=== PATIENT | female | born 1980 | race African-American/Black ===

== ENCOUNTER 2018-12-10 20:29 | Outpatient (CLI) | payer SELFPAY ==
[2018-12-10 21:04] VITALS: BP 102/61
--- NOTE | 2018-12-10 22:27 | Ultrasound Report ---
Limited OB ultrasound INDICATION: Evaluate placental location. Clinical gestational age of 30 weeks, 7 days. COMPARISON: None available. FINDINGS: A single live intrauterine is noted with a heart rate of 164 bpm. The placenta is located a nteriorly and is free of the os. The cervix measures 4.6 cm in length and is closed. No additional significant abnormality is seen. IMPRESSION: No acute sonographic abnormality of the pelvis is seen on this limited study. Signer Name: Silas Wolfe MD Signed: 12/10/2018 10:22 PM Workstation Name: [id number]
== END 2018-12-10 22:25 | disposition home or self-care (01) ==
LOC: TRG 20:29
PROVIDERS: ATTEND Obstetrics & Gynecology
DX: O46.92 Antepartum hemorrhage, unspecified, second trimester (principal); Z3A.22 22 weeks gestation of pregnancy
CPT/HCPCS: 76815

== ENCOUNTER 2019-04-03 17:05 | Inpatient (IN) | payer OTHER ==
[2019-04-03] MEDS ORDERED: LACTATED RINGERS 1,000 ML ONE (19:23)
[2019-04-03 20:31] LABS: Hematocrit 36.5 % (30.3-42.9); Hemoglobin 12.6 gm/dl (10.1-14.3); Mean Corpuscular HGB Conc 35 % (30-34); Mean Corpuscular Volume 90 fl (79-97); Platelet Count 268 K/mm3 (140-440); Red Blood Count 4.08 M/mm3 (3.65-5.03); Red Cell Distribution Width 13.6 % (13.2-15.2)
[2019-04-03] MEDS ORDERED: ACETAMINOPHEN 325 MG TAB PO PRN (21:25)
[2019-04-03] MEDS ORDERED: DINOPROSTONE 10 MG VAG SUPP VG ONE (21:25)
[2019-04-03] MEDS ORDERED: DOCUSATE SODIUM 100 MG CAP PO PRN (21:25)
[2019-04-03] MEDS ORDERED: AMPICILLIN/NS 2 GM/100 ML 2 GM/100 ML BAG IV ONE (21:25)
[2019-04-03] MEDS ORDERED: ONDANSETRON 4 MG/2 ML INJ IV PRN (21:25)
--- NOTE | 2019-04-03 21:36 | History and Physical Report ---
History of Present Illness Date of examination: 04/03/19 History of present illness: Pt is a 38 yo at 40.3 weeks today who was sent in today for IOL. Also decreased FM the last 2-3 days. No VB. No LOF. No significant issues except hypothyroidism. GBS pos. Pt is not complaining of ctx. Past History Past Medical History: thyroid disease (hypothyroidism) Past Surgical History: other (thyroid cyst removed.) Family/Genetic History: none Social history: no significant social history - Obstetrical History Expected Date of Delivery: 03/31/19 Actual Gestation: 40 Week(s) 3 Day(s) : 1 Para: 1 Hx # Term Pregnancies: 0 Medications and Allergies Allergies Allergy/AdvReac Type Severity Reaction Status Date / Time No Known Allergies Allergy Unverified 12/10/18 21:38 Active Meds: Active Medications Docusate Sodium (Colace) 100 mg PO Q12H PRN PRN Reason: Constipation Multivitamins/Iron/Calcium ( Vitamin) 1 each PO QDAY BRANDEE levothyroxine 75 mcg qd Review of Systems All systems: negative (except HPI) - Vital Signs Vital signs: Vital Signs Pulse BP 96 H 107/73 04/03/19 19:30 04/03/19 19:30 Temp Pulse Resp BP Pulse Ox 91 H 103/59 96 04/03/19 21:28 04/03/19 21:14 04/03/19 21:28 - Physical Exam Abdomen: Positive: normal appearance, soft. Negative: tenderness - Obstetrical FHR: category 1 Cervical Dilatation: 1 Cervical Effacement Percentage: 50 station: -3 Uterine Contraction Pattern: Absent Results Result Diagrams: 04/03/19 19:50 Abnormal lab results 04/03/19 Range/Units 19:50 WBC 12.0 H (4.5-11.0) K/mm3 MCHC 35 H (30-34) % All other labs normal. Assessment and Plan - Patient Problems (1) Post-dates Current Visit: Yes Status: Acute Plan to address problem: PT is a at 40.3 for IOL. Will start with cervidil. NST is reactive. Expectant care.
[2019-04-03] MEDS ORDERED: LACTATED RINGERS 1,000 ML IV SCH (22:00)
[2019-04-03 23:35] LABS: Basophils % (Auto) 0.2 % (0.0-1.8); Eosinophils # (Auto) 0.2 K/mm3 (0.0-0.4); Eosinophils % (Auto) 1.8 % (0.0-4.3); Hematocrit 37.5 % (30.3-42.9); Hemoglobin 12.4 gm/dl (10.1-14.3); Lymphocytes # (Auto) 2.5 K/mm3 (1.2-5.4); Lymphocytes % (Auto) 18.1 % (13.4-35.0); Mean Corpuscular HGB Conc 33 % (30-34); Mean Corpuscular Volume 92 fl (79-97); Monocytes # (Auto) 1.1 K/mm3 (0.0-0.8); Monocytes % (Auto) 8.2 % (0.0-7.3); Platelet Count 264 K/mm3 (140-440); Red Blood Count 4.09 M/mm3 (3.65-5.03); Red Cell Distribution Width 13.6 % (13.2-15.2)
[2019-04-04] MEDS ORDERED: LEVOTHYROXINE 75 MCG TAB PO SCH (06:00)
[2019-04-04] MEDS ORDERED: fentaNYL 100 MCG/2 ML INJ ONE (09:19)
[2019-04-04] MEDS ORDERED: fentaNYL 100 MCG/2 ML INJ IV PRN (09:30)
[2019-04-04] MEDS: AMPICILLIN/NS 1 GM/50 ML 1 GM/50 ML BAG IV SCH ×3 (09:31→18:55)
[2019-04-04] MEDS ORDERED: PRENATAL VIT27-FE FUMARATE-FOLIC ACID VIT TAB PO SCH (10:00)
[2019-04-04] MEDS ORDERED: LIDOCAINE (2%) 20 MG/1 ML VIAL 20 ML MDV INFILTRATI ONE (10:18)
[2019-04-04] MEDS ORDERED: MINERAL OIL 30 ML ORAL LIQD PO PRN (10:18)
[2019-04-04] MEDS ORDERED: OXYTOCIN DRIP 30 UNITS/500 ML BAG IV SCH (11:00)
--- NOTE | 2019-04-04 12:01 | Event Note ---
Date: 04/04/19 O: VE -1, arom clear fluid, CAT I tracing A: Active labor P; EXpect
[2019-04-04] MEDS ORDERED: DEXMEDETOMIDINE 200 MCG/2 ML VIAL IV ONE (12:09)
[2019-04-04] MEDS ORDERED: ePHEDrine SULFATE 50 MG/1 ML INJ ONE (12:39)
[2019-04-04] MEDS ORDERED: NALOXONE 2 MG/2 ML INJ IV PRN (13:01)
[2019-04-04] MEDS ORDERED: ePHEDrine SULFATE 50 MG/1 ML INJ IV PRN (13:01)
--- NOTE | 2019-04-04 13:01 | Anesthesia Consultation ---
Anesthesia Consult and Med Hx Date of service: 04/04/19 - Airway Anesthetic Teeth Evaluation: Good ROM Head & Neck: Adequate Mental/Hyoid Distance: Adequate Mallampati Class: Class II Intubation Access Assessment: Good - Pulmonary Exam CTA: Yes - Cardiac Exam Cardiac Exam: RRR - Pre-Operative Health Status ASA Pre-Surgery Classification: ASA2, Emergency Proposed Anesthetic Plan: Epidural, Spinal - Pulmonary Hx Asthma: No COPD: No Hx Pneumonia: No - Cardiovascular System Hx Hypertension: No - Central Nervous System Hx Seizures: No Hx Psychiatric Problems: No - Endocrine Hx Renal Disease: No Hx End Stage Renal Disease: No Hx Hypothyroidism: Yes (TAKING SYNTHROID) Hx Hyperthyroidism: No - Hematic Hx Anemia: No Hx Sickle Cell Disease: No - Other Systems Hx Alcohol Use: No
[2019-04-04] MEDS ORDERED: fentaNYL-BUPIV 2 MCG/ML-0.125% 200 MCG/100 ML BAG EPIDURAL SCH (14:00)
[2019-04-04] MEDS ORDERED: BUPIVACAINE/PF (0.25%) 2.5 MG/ML 10 ML VIAL INFILTRATI ONE ×3 (15:25→23:22)
[2019-04-04] MEDS ORDERED: PHENYLEPHRINE/NS 1,000 MCG/10 ML SYRINGE (OR USE) IV ONE ×2 (15:37→23:43)
[2019-04-04] MEDS: LACTATED RINGERS 1,000 ML IV SCH ×2 (16:26→20:42)
--- NOTE | 2019-04-04 17:28 | Progress Note ---
Assessment and Plan - Patient Problems (1) 40 weeks gestation of Current Visit: Yes Status: Acute (2) Encounter for induction of labor Current Visit: Yes Status: Acute Plan to address problem: Continue routine labor orders Start oxytocin for labor augmentation Per Dr. Martinez, if no cervical changes 4 hrs after initiating Pitocin will proceed with primary Plan of care discussed with patient and spouse. All questions answered. Anticipate vaginal delivery (3) History of hypothyroidism Current Visit: Yes Status: Acute Plan to address problem: On Levothyroxine 75 mcg qd. Last taken 04/02/19 Subjective - Subjective Date of service: 04/04/19 Principal diagnosis: IUP @ 40w4d, Induction of labor Interval history: see H&P and Event Note Patient reports: movement normal, contractions, other (epidural anesthesia in place) Objective - Vital Signs Vital Signs: Vital Signs - 12hr 04/04/19 04/04/19 04/04/19 05:31 05:36 06:15 Temperature 98.2 F Pulse Rate 83 87 Respiratory 14 Rate Blood Pressure Blood Pressure [Left] O2 Sat by Pulse 97 96 Oximetry 04/04/19 04/04/19 04/04/19 07:24 07:26 12:11 Temperature 98.1 F Pulse Rate 87 87 108 H Respiratory 20 Rate Blood Pressure 110/63 122/71 Blood Pressure 110/63 [Left] O2 Sat by Pulse Oximetry 04/04/19 04/04/19 04/04/19 12:12 12:14 12:17 Temperature Pulse Rate 109 H 113 H 106 H Respiratory Rate Blood Pressure 110/69 Blood Pressure [Left] O2 Sat by Pulse 98 97 Oximetry 04/04/19 04/04/19 04/04/19 12:19 12:22 12:25 Temperature Pulse Rate 104 H 119 H 105 H Respiratory Rate Blood Pressure 111/62 58/32 Blood Pressure [Left] O2 Sat by Pulse 97 Oximetry 04/04/19 04/04/19 04/04/19 12:27 12:28 12:29 Temperature Pulse Rate 130 H 122 H 106 H Respiratory Rate Blood Pressure 61/39 Blood Pressure [Left] O2 Sat by Pulse 97 93 Oximetry 04/04/19 04/04/19 04/04/19 12:32 12:34 12:36 Temperature Pulse Rate 110 H 106 H 114 H Respiratory Rate Blood Pressure 58/33 Blood Pressure [Left] O2 Sat by Pulse 95 92 Oximetry 04/04/19 04/04/19 04/04/19 12:37 12:41 12:42 Temperature Pulse Rate 107 H 107 H 68 Respiratory Rate Blood Pressure 104/57 Blood Pressure [Left] O2 Sat by Pulse 96 98 Oximetry 04/04/19 04/04/19 04/04/19 12:45 12:47 12:49 Temperature Pulse Rate 78 125 H 125 H Respiratory Rate Blood Pressure 97/59 89/53 Blood Pressure [Left] O2 Sat by Pulse 100 Oximetry 04/04/19 04/04/19 04/04/19 12:52 12:55 12:57 Temperature Pulse Rate 129 H 110 H 122 H Respiratory Rate Blood Pressure 106/59 Blood Pressure [Left] O2 Sat by Pulse 99 100 Oximetry 04/04/19 04/04/19 04/04/19 13:00 13:02 13:04 Temperature Pulse Rate 126 H 114 H 113 H Respiratory Rate Blood Pressure 83/47 92/55 Blood Pressure [Left] O2 Sat by Pulse 100 Oximetry 04/04/19 04/04/19 04/04/19 13:07 13:09 13:12 Temperature Pulse Rate 90 106 H 114 H Respiratory Rate Blood Pressure 100/56 Blood Pressure [Left] O2 Sat by Pulse 100 100 Oximetry 04/04/19 04/04/19 04/04/19 13:14 13:17 13:20 Temperature Pulse Rate 103 H 120 H 110 H Respiratory Rate Blood Pressure 97/54 104/58 Blood Pressure [Left] O2 Sat by Pulse 100 Oximetry 04/04/19 04/04/19 04/04/19 13:22 13:25 13:27 Temperature Pulse Rate 117 H 104 H 114 H Respiratory Rate Blood Pressure 102/59 Blood Pressure [Left] O2 Sat by Pulse 100 100 Oximetry 04/04/19 04/04/19 04/04/19 13:30 13:32 13:34 Temperature Pulse Rate 115 H 98 H 114 H Respiratory Rate Blood Pressure 99/50 91/54 Blood Pressure [Left] O2 Sat by Pulse 100 Oximetry 04/04/19 04/04/19 04/04/19 13:37 13:39 13:42 Temperature Pulse Rate 118 H 109 H 118 H Respiratory Rate Blood Pressure 101/56 Blood Pressure [Left] O2 Sat by Pulse 100 100 Oximetry 04/04/19 04/04/19 04/04/19 13:44 13:47 13:50 Temperature Pulse Rate 112 H 115 H 90 Respiratory Rate Blood Pressure 92/55 97/55 Blood Pressure [Left] O2 Sat by Pulse 100 Oximetry 04/04/19 04/04/19 04/04/19 13:52 13:54 13:57 Temperature Pulse Rate 101 H 100 H 114 H Respiratory Rate Blood Pressure 97/54 Blood Pressure [Left] O2 Sat by Pulse 100 100 Oximetry 04/04/19 04/04/19 04/04/19 14:01 14:02 14:05 Temperature Pulse Rate 118 H 103 H 106 H Respiratory Rate Blood Pressure 98/56 103/57 Blood Pressure [Left] O2 Sat by Pulse 100 Oximetry 04/04/19 04/04/19 04/04/19 14:07 14:10 14:12 Temperature Pulse Rate 115 H 104 H 107 H Respiratory Rate Blood Pressure 95/58 Blood Pressure [Left] O2 Sat by Pulse 100 100 Oximetry 04/04/19 04/04/19 04/04/19 14:15 14:17 14:19 Temperature Pulse Rate 118 H 108 H 116 H Respiratory Rate Blood Pressure 96/51 95/54 Blood Pressure [Left] O2 Sat by Pulse 100 Oximetry 04/04/19 04/04/19 04/04/19 14:22 14:24 14:27 Temperature Pulse Rate 112 H 115 H 115 H Respiratory Rate Blood Pressure 95/59 Blood Pressure [Left] O2 Sat by Pulse 99 100 Oximetry 04/04/19 04/04/19 04/04/19 14:30 14:32 14:35 Temperature 97.7 F Pulse Rate 129 H 115 H 113 H Respiratory 26 H Rate Blood Pressure 105/69 109/70 Blood Pressure 109/70 [Left] O2 Sat by Pulse 100 100 Oximetry 04/04/19 04/04/19 04/04/19 14:37 14:41 14:42 Temperature Pulse Rate 113 H 114 H 118 H Respiratory Rate Blood Pressure 102/64 Blood Pressure [Left] O2 Sat by Pulse 100 100 Oximetry 04/04/19 04/04/19 04/04/19 14:45 14:47 14:50 Temperature Pulse Rate 98 H 118 H 97 H Respiratory Rate Blood Pressure 104/61 108/59 Blood Pressure [Left] O2 Sat by Pulse 100 Oximetry 04/04/19 04/04/19 04/04/19 14:52 14:54 14:57 Temperature Pulse Rate 109 H 103 H 120 H Respiratory Rate Blood Pressure 109/60 Blood Pressure [Left] O2 Sat by Pulse 100 100 Oximetry 04/04/19 04/04/19 04/04/19 14:59 15:02 15:05 Temperature Pulse Rate 104 H 103 H 96 H Respiratory Rate Blood Pressure 126/55 86/51 Blood Pressure [Left] O2 Sat by Pulse 100 Oximetry 04/04/19 04/04/19 04/04/19 15:07 15:09 15:12 Temperature Pulse Rate 103 H 100 H 106 H Respiratory Rate Blood Pressure 87/50 Blood Pressure [Left] O2 Sat by Pulse 100 100 Oximetry 04/04/19 04/04/19 04/04/19 15:16 15:17 15:19 Temperature Pulse Rate 95 H 113 H 111 H Respiratory Rate Blood Pressure 93/54 75/40 Blood Pressure [Left] O2 Sat by Pulse 99 Oximetry 04/04/19 04/04/19 04/04/19 15:22 15:23 15:24 Temperature Pulse Rate 84 88 106 H Respiratory Rate Blood Pressure 83/50 78/44 Blood Pressure [Left] O2 Sat by Pulse 100 Oximetry 04/04/19 04/04/19 04/04/19 15:27 15:29 15:32 Temperature Pulse Rate 92 H 113 H 121 H Respiratory Rate Blood Pressure 84/53 Blood Pressure [Left] O2 Sat by Pulse 100 100 Oximetry 04/04/19 04/04/19 04/04/19 15:35 15:37 15:39 Temperature Pulse Rate 89 71 110 H Respiratory Rate Blood Pressure 82/48 128/60 131/64 Blood Pressure [Left] O2 Sat by Pulse 100 Oximetry 04/04/19 04/04/19 04/04/19 15:42 15:45 15:48 Temperature Pulse Rate 124 H 108 H 99 H Respiratory Rate Blood Pressure 93/57 Blood Pressure [Left] O2 Sat by Pulse 100 100 Oximetry 04/04/19 04/04/19 04/04/19 15:49 15:53 15:54 Temperature Pulse Rate 106 H 92 H 84 Respiratory Rate Blood Pressure 95/51 107/58 Blood Pressure [Left] O2 Sat by Pulse 100 Oximetry 04/04/19 04/04/19 04/04/19 15:58 16:00 16:01 Temperature Pulse Rate 84 112 H 108 H Respiratory Rate Blood Pressure 84/46 Blood Pressure [Left] O2 Sat by Pulse 100 0 L Oximetry 04/04/19 04/04/19 04/04/19 16:02 16:04 16:06 Temperature Pulse Rate 114 H 97 H 66 Respiratory Rate Blood Pressure 80/39 Blood Pressure [Left] O2 Sat by Pulse 100 81 L Oximetry 04/04/19 04/04/19 04/04/19 16:07 16:09 16:10 Temperature Pulse Rate 63 78 74 Respiratory Rate Blood Pressure 119/62 134/74 Blood Pressure [Left] O2 Sat by Pulse 100 Oximetry 04/04/19 04/04/19 04/04/19 16:14 16:19 16:22 Temperature Pulse Rate 84 104 H 99 H Respiratory Rate Blood Pressure 101/58 Blood Pressure [Left] O2 Sat by Pulse 100 100 Oximetry 04/04/19 04/04/19 04/04/19 16:24 16:25 16:29 Temperature Pulse Rate 100 H 93 H 109 H Respiratory Rate Blood Pressure 101/59 93/51 Blood Pressure [Left] O2 Sat by Pulse 100 100 Oximetry 04/04/19 04/04/19 04/04/19 16:34 16:39 16:40 Temperature Pulse Rate 105 H 107 H 106 H Respiratory Rate Blood Pressure 117/59 Blood Pressure [Left] O2 Sat by Pulse 100 100 Oximetry 04/04/19 04/04/19 04/04/19 16:44 16:45 16:49 Temperature Pulse Rate 101 H 104 H 91 H Respiratory Rate Blood Pressure 101/56 100/55 Blood Pressure [Left] O2 Sat by Pulse 100 100 Oximetry 04/04/19 04/04/19 04/04/19 16:54 16:56 16:59 Temperature Pulse Rate 89 99 H 95 H Respiratory Rate Blood Pressure 101/55 Blood Pressure [Left] O2 Sat by Pulse 100 100 Oximetry 04/04/19 04/04/19 04/04/19 17:00 17:04 17:05 Temperature Pulse Rate 107 H 118 H 118 H Respiratory Rate Blood Pressure 93/50 59/31 Blood Pressure [Left] O2 Sat by Pulse 100 Oximetry 04/04/19 04/04/19 04/04/19 17:09 17:10 17:14 Temperature Pulse Rate 97 H 96 H 117 H Respiratory Rate Blood Pressure 102/56 Blood Pressure [Left] O2 Sat by Pulse 100 98 Oximetry 04/04/19 04/04/19 04/04/19 17:15 17:19 17:24 Temperature Pulse Rate 133 H 127 H 98 H Respiratory Rate Blood Pressure 78/45 Blood Pressure [Left] O2 Sat by Pulse 100 100 Oximetry 04/04/19 17:25 Temperature Pulse Rate 111 H Respiratory Rate Blood Pressure 99/44 Blood Pressure [Left] O2 Sat by Pulse Oximetry - Exam FHR: auscultation normal, category 1 FHR comments: baseline 140, moderate variability, 15x15 accels, no decels Uterine Contraction Monitor Mode: External Cervical Dilatation: 5 (per Dr. Martinez) Cervical Effacement Percentage: 100 (per Dr. Martinez) station: 0 (per Dr. Martinez) Uterine Contraction Frequency (min): 4-6 Uterine Contraction Pattern: Regular Extremities: normal - Labs Labs: Abnormal Labs 04/03/19 04/03/19 19:50 23:02 WBC 12.0 H 13.8 H MCHC 35 H Bennett % (Auto) 8.2 H Bennett # 1.1 H Seg Neutrophils % 71.7 H Seg Neutrophils # 9.9 H Laboratory Results - last 24 hr 04/03/19 04/03/19 04/03/19 19:50 19:50 19:50 WBC 12.0 H RBC 4.08 Hgb 12.6 Hct 36.5 MCV 90 MCH 31 MCHC 35 H RDW 13.6 Plt Count 268 Lymph % (Auto) Bennett % (Auto) Eos % (Auto) Baso % (Auto) Lymph # Bennett # Eos # Baso # Seg Neutrophils % Seg Neutrophils # Syphilis IgG Antibody Non-reactive Blood Type O POSITIVE Antibody Screen Negative 04/03/19 23:02 WBC 13.8 H RBC 4.09 Hgb 12.4 Hct 37.5 MCV 92 MCH 30 MCHC 33 RDW 13.6 Plt Count 264 Lymph % (Auto) 18.1 Bennett % (Auto) 8.2 H Eos % (Auto) 1.8 Baso % (Auto) 0.2 Lymph # 2.5 Bennett # 1.1 H Eos # 0.2 Baso # 0.0 Seg Neutrophils % 71.7 H Seg Neutrophils # 9.9 H Syphilis IgG Antibody Blood Type Antibody Screen
[2019-04-04] MEDS ORDERED: PHENYLEPHRINE/NS 1,000 MCG/10 ML SYRINGE (OR USE) IV SCH (19:00)
[2019-04-04] MEDS ORDERED: METOCLOPRAMIDE 10 MG/2 ML INJ IV ONE (21:58)
[2019-04-04] MEDS ORDERED: BICITRA ORAL LIQD 30ML PO ONE (21:58)
[2019-04-04] MEDS ORDERED: FAMOTIDINE 20 MG/2 ML INJ IV ONE (21:58)
[2019-04-04] MEDS ORDERED: ceFAZolin/Water 2 GM/20 ML 2 GM/20 ML SYRINGE IV NR (22:00)
[2019-04-04] MEDS ORDERED: TERBUTALINE 1 MG/1 ML INJ SUB-Q PRN (22:10)
--- NOTE | 2019-04-04 22:38 | Event Note ---
Date: 04/04/19 Patient not coping with labor and stalled at 5-7cm for the 5hours. Patient is exhausted and requesting for a delivery. All risks of discussed with patient and after answering all her questions she consented for a . Plan: For as soon as all teams ready.
[2019-04-04] MEDS ORDERED: OXYTOCIN 20 UNIT/1000ML DRIP 20 UNITS/1,000 ML BAG IV SCH (23:00)
[2019-04-04] MEDS ORDERED: ONDANSETRON 4 MG/2 ML INJ ONE (23:41)
[2019-04-05] MEDS ORDERED: KETAMINE/STERILE WATER 50 MG/ML SYRINGE ONE (00:08)
[2019-04-05] MEDS ORDERED: KETOROLAC 30 MG/1 ML INJ ONE (00:21)
[2019-04-05] MEDS ORDERED: HYDROmorphone 1 MG/1 ML INJ ONE (00:24)
[2019-04-05] MEDS ORDERED: fentaNYL 100 MCG/2 ML INJ ONE (00:25)
[2019-04-05] MEDS ORDERED: MIDAZOLAM 2 MG/2 ML INJ ONE (00:30)
[2019-04-05] MEDS: OXYTOCIN 20 UNIT/1000ML DRIP 20 UNITS/1,000 ML BAG IV SCH ×2 (01:00→02:02)
[2019-04-05] MEDS ORDERED: KETOROLAC 30 MG/1 ML INJ IV PRN (01:03)
[2019-04-05] MEDS ORDERED: ACETAMINOPHEN 325 MG TAB PO PRN (01:03)
[2019-04-05] MEDS ORDERED: MORPHINE 4 MG/1 ML INJ IV PRN (01:03)
[2019-04-05] MEDS ORDERED: LANOLIN/ZINC/DIMETHICONE (LANSINOH) 7 GM TP PRN (01:03)
[2019-04-05] MEDS ORDERED: ONDANSETRON 4 MG/2 ML INJ IV PRN ×2 (01:03→01:13)
[2019-04-05] MEDS ORDERED: WITCH HAZEL/ GLYCERIN PAD TP PRN (01:03)
[2019-04-05] MEDS ORDERED: NALOXONE 0.4 MG/1 ML INJ IV PRN ×2 (01:03→01:13)
--- NOTE | 2019-04-05 01:11 | Operative Report ---
Operative Report Operative Report: Date of surgery: 04/05/2019 Preoperative diagnoses: Maternal exhaustion, failure to progress Postoperative diagnoses: The same. Operation: Lower segment transverse delivery Surgeon:[place] Martinez MD Carburizing Furnace Operator: Pilar Douglas CRNA Anesthesia: Epidural block Estimated blood loss: 800 mL Complications: None Findings: There was a live baby boy in occiput posterior position. weight was 7 lbs. 15 oz. scores of 8/9. The ovaries, fallopian tubes as well as the uterus were all grossly normal. The greater omentum seen through the Pfannenstiel incision was grossly normal Procedure in detail: The patient was taken to the operating room and given a spinal block. Patient was placed in the straight supine position and a Armenta catheter was inserted. The patient was prepped in the abdomen. The drapes were placed. A timeout was done. With the go ahead from the housing liaison, a Pfannenstiel incision was made. This incision was carried across the subcutaneous layer to the fascia which was also divided transversely. The recti abdominis muscle flaps were stripped from the fascia using a combination of blunt and sharp dissections. The muscles were in the midline to gain access to the anterior parietal peritoneum which was divided after excluding any underlying viscera. The access to the peritoneal cavity was then widened by manual stretching. The bladder blade was applied. The utero vesicle peritoneal flap was divided transversely allowing the bladder to be displaced caudally. The uterine incision was placed in the lower segment transversely. The uterine incision was carried to the decidual layer. The uterine incision was extended on both sides using the bandage scissors. The amniotic sac was ruptured with clear fluid. The head was lifted out of the false maternal pelvis and delivered through the incision using fundal pressure assisted with vacuum. The airways were bulb suctioned beginning with the mouth. Continuing fundal pressure combined with traction on the mandibular processes of the jaw delivered the rest of the baby. The umbilical cord was double clamped and divided. The baby was carefully transferred to the pediatric team. The placenta was manually removed from the uterine cavity. The uterine cavity was explored and was empty of any placental remnants. The uterine incision was repaired in 2 layers with #1 Vicryl. The surgical line on the uterus was hemostatic. Blood and clots were cleared from the peritoneal cavity. The anterior parietal peritoneum was repaired with #1 Vicryl. The fascia was repaired with #1 Vicryl. The subcutaneous layer was made hemostatic using the Bovie before the skin was closed subcuticularly with 4-0 Vicryl. There were no complications. The estimated blood loss was 800 mL. All sponges and instrument counts were correct. Patient was safely transferred to the recovery room.
[2019-04-05] MEDS ORDERED: HYDROmorphone 1 MG/1 ML INJ IV PRN ×2 (01:13)
[2019-04-05] MEDS ORDERED: PROMETHAZINE 25 MG TAB PO PRN (01:13)
[2019-04-05] MEDS ORDERED: PROMETHAZINE 25 MG RECT SUPP PR PRN (01:13)
--- NOTE | 2019-04-05 01:13 | Anesthesia Day of Surgery ---
Anesthesia Day of Surgery - Day of Surgery Patient Examined: Yes Patient H&P Reviewed: Yes Patient is NPO: Yes
--- NOTE | 2019-04-05 01:15 | Post Anesthesia Evaluation ---
- Post Anesthesia Evaluation Patient Participated: Yes Airway Patent: Yes Stable Respiratory Function: Yes Nausea/Vomiting: No Temp > 96.8F: Yes Pain Manageable: Yes Adequeate Hydration: Yes Anesthesia Complications: No Block Receding Appropriately: Yes Patient on Ventilator: No
[2019-04-05] MEDS ORDERED: D5W/LACTATED RINGERS 1,000 ML IV SCH (05:00)
[2019-04-05] MEDS: ceFAZolin/NS 1 GM/50 ML 1 GM/50 ML BAG IV SCH ×2 (05:24→13:44)
[2019-04-05] MEDS ORDERED: FERROUS SULFATE 325 MG TAB PO SCH (10:00)
[2019-04-05] MEDS ORDERED: PRENATAL VIT27-FE FUMARATE-FOLIC ACID VIT TAB PO SCH (10:00)
[2019-04-05 13:22] LABS: Hematocrit 26.9 % (30.3-42.9); Hemoglobin 9.1 gm/dl (10.1-14.3)
[2019-04-05] MEDS: IBUPROFEN 800 MG TAB PO PRN (23:47)
[2019-04-06] MEDS: HYDROcodone/ACETAMINOPHEN 5-325 MG TAB PO PRN ×2 (05:45→11:56)
--- NOTE | 2019-04-06 11:41 | Progress Note ---
Assessment and Plan A: POD #1 Asymptomatic Anemia Hypothyroidism P: Follow Routine PostOp Orders FeSO4 325mg PO TID Subjective - Subjective Date of service: 04/06/19 Principal diagnosis: IUP @ 40w4d, Induction of labor Patient reports: appetite normal, voiding normally, pain well controlled, flatus, ambulating normally [place]: doing well, bottle feeding Objective - Vital Signs Latest vital signs: Vital Signs Temp Pulse Resp BP 04/06/19 08:25 98.1 F 84 18 99/46 04/06/19 05:45 18 04/06/19 00:00 98.8 F 74 18 102/65 04/05/19 23:47 18 04/05/19 16:45 98.1 F 88 20 96/50 04/05/19 12:25 97.5 F L 96 H 18 95/54 Intake and Output 04/05/19 04/06/19 04/06/19 22:59 06:59 14:59 Intake Total 540 300 240 Balance 540 300 240 Intake: Oral 240 240 Intake, Free Water 300 300 Other: Total, Intake Amount 120 240 # Voids Void 1 1 1 - Exam Breasts: Present: normal Cardiovascular: Present: Regular rate Lungs: Present: Clear to auscultation, Normal air movement Abdomen: Present: normal appearance, soft, normal bowel sounds Uterus: Present: normal, firm, fundal height below umbilicus Extremities: Present: normal Incision: Present: normal, dry, dressed - Labs Labs: Abnormal lab results 04/05/19 Range/Units 12:51 Hgb 9.1 L D (10.1-14.3) gm/dl Hct 26.9 L D (30.3-42.9) %
[2019-04-06] MEDS: IBUPROFEN 800 MG TAB PO PRN (11:55)
[2019-04-06] MEDS: DOCUSATE SODIUM 100 MG CAP PO SCH (11:55)
[2019-04-06] MEDS: FERROUS SULFATE 325 MG TAB PO SCH (11:55)
[2019-04-06] MEDS ORDERED: FERROUS SULFATE 325 MG TAB PO ONE (11:56)
[2019-04-07] MEDS: FERROUS SULFATE 325 MG TAB PO SCH (07:58)
[2019-04-07] MEDS: DOCUSATE SODIUM 100 MG CAP PO SCH (09:57)
--- NOTE | 2019-04-07 12:24 | Progress Note ---
Assessment and Plan - Patient Problems (1) Single live Current Visit: Yes Status: Acute (2) S/P primary low transverse Current Visit: Yes Status: Acute Plan to address problem: POD 2 - stable Discharge to home today Follow up at [facility] as needed or in 1 week for incision check (3) Anemia due to blood loss, acute Current Visit: Yes Status: Acute Plan to address problem: Asymptomatic Continue iron therapy (4) History of hypothyroidism Current Visit: Yes Status: Acute Plan to address problem: Not currently on medication Subjective - Subjective Date of service: 04/07/19 Principal diagnosis: POD #2; s/p Primary LTCS Interval history: see H&P, Event Notes, Operative Report and PP/[employer] Progress Note Patient reports: appetite normal, voiding normally, pain well controlled, flatus, bowel movement, ambulating normally, no dizzy ambulation, no nauseated : doing well Objective - Vital Signs Latest vital signs: Vital Signs Temp Pulse Resp BP BP Pulse Ox 04/07/19 08:42 98.2 F 84 18 104/63 99 04/07/19 02:18 98.0 F 80 18 103/66 04/06/19 15:00 98.1 F 89 18 99/60 Intake and Output 04/06/19 04/07/19 04/07/19 23:59 07:59 15:59 Intake Total 200 240 240 Balance 200 240 240 Intake: Oral 200 240 Intake, Free Water 240 Other: Total, Intake Amount 200 240 # Voids Void 2 1 1 - Exam Cardiovascular: Present: Regular rate Lungs: Present: Clear to auscultation Abdomen: Present: normal appearance, soft Vulva: both: normal Uterus: Present: normal, firm, fundal height below umbilicus Extremities: Present: normal Incision: Present: normal, dry, intact, other (steri strips in place) Comments: scant lochia
--- NOTE | 2019-04-07 12:25 | Discharge Summary ---
Providers - Providers Date of Admission: 04/03/19 21:25 Date of discharge: 04/07/19 Attending physician: LIZY GENTILE Primary care physician: LZIY GENTILE Hospitalization Reason for admission: induction of labor, IUP at term Delivery: Procedure: primary low transverse Episiotomy: none Laceration: none Incision: normal, dry, intact, other (steri strips in place) Other procedures: none complications: none Discharge diagnosis: IUP at term delivered baby: female Hospital course: Uncomplicated Condition at discharge: Stable Disposition: DC-01 TO HOME OR SELFCARE - Discharge Diagnoses (1) Single live Status: Acute (2) S/P primary low transverse Status: Acute (3) Anemia due to blood loss, acute Status: Acute Comment: Asymptomatic Continue iron therapy Eat iron-rich foods (4) History of hypothyroidism Status: Acute Comment: Follow up with Endocrinology Plan - Discharge Medications Prescriptions: Ferrous Sulfate [Feosol 325 MG tab] 325 mg PO TID #90 tablet Ibuprofen [Motrin 800 MG tab] 800 mg PO Q6H PRN #30 tablet PRN Reason: Pain, Mild (1-3) HYDROcodone/APAP 5-325 [[place] 5/325] 1 each PO Q4HR PRN #30 tablet PRN Reason: Pain - Provider Discharge Summary Activity: routine, no sex for 6 weeks, no heavy lifting 4 weeks, no strenuous exercise Diet: routine Instructions: routine Additional instructions: [] Smoking cessation referral if applicable(refer to patient education folder for contact #) [] Refer to [facility]'s [facility] Booklet Call your doctor immediately for: * Fever > 100.5 * Heavy vaginal bleeding ( >1 pad per hour) * Severe persistent headache * Shortness of breath * Reddened, hot, painful area to leg or breast * Drainage or odor from incision. * Keep incision clean and dry at all times and follow doctor's instructions regarding bathing/showering - Follow up plan Follow up: LIZY GENTILE MD [Primary Care Provider] - 7 Days
[2019-04-07 16:12] VITALS: BP 126/74
== END 2019-04-07 16:20 | disposition home or self-care (01) | DRG 787 ==
LOC: LD 17:05 → TRG 17:05 → LD 21:25 → OB 04-05 03:44
PROVIDERS: ADMIT Obstetrics & Gynecology; ATTEND Obstetrics & Gynecology
PROC: 10907ZC Drainage of Amniotic Fluid, Therapeutic from Products of Conception, Via Natural or Artificial Opening (ICD-10-PCS; 2019-04-04)
PROC: 10D00Z1 Extraction of Products of Conception, Low, Open Approach (ICD-10-PCS; principal; 2019-04-05)
DX: O99.284 Endocrine, nutritional and metabolic diseases complicating childbirth (principal); D62 Acute posthemorrhagic anemia; E03.9 Hypothyroidism, unspecified; O99.02 Anemia complicating childbirth; O99.824 Streptococcus B carrier state complicating childbirth; O48.0 Post-term pregnancy; Z3A.40 40 weeks gestation of pregnancy; Z37.0 Single live birth
CPT/HCPCS: 36415; 85014; 85018; 85025; 85027; 86592; 86850; 86900; 86901; G0378; J0290; J0690; J1170; J1885; J2250; J2370; J2405; J2590; J2765; J3010; J3490; J7120; J7121